=== PATIENT | female | born 1995 | race African-American/Black ===

== ENCOUNTER 2019-12-11 11:47 | Observation (INO) | payer OTHER, SELFPAY ==
[2019-12-11] VITALS (9 sets, daily range): BP systolic 111–120; BP diastolic 66–77; PULSE 85–95; RESP 16; TEMP 36.7; BMI 23.1
--- NOTE | 2019-12-11 11:47 | OBADM ---
This patient, Rukhsana Frances, admitted to the OB room OB Post 115 for observation. Patient/family oriented to hospital policies and general routines including ID bracelet, bed and alarms, visiting hours, pain management, procedures, bathroom and other care routines, personal items, smoking policy, room service/diet, and visiting hours. Patient/Family are encouraged to report perceived risks to care and to ask questions if they do not understand what they are told or what they should do.
--- NOTE | 2019-12-11 14:07 | PM.OBTRLD ---
OB - Triage/Final Diagnosis Visit Information Date of evaluation: 12/11/19 Evaluation Cervical dilation (cm): 4 Cervical effacement (%): 50 station: -3 Final Diagnosis (1) Twin dichorionic diamniotic placenta: Code(s): O30.049 - Twin , dichorionic/diamniotic, unspecified trimester Status: Acute (2) labor in third trimester: Qualifiers: labor delivery status: without delivery Qualified Code(s): O60.03 - labor without delivery, third trimester Code(s): O60.03 - labor without delivery, third trimester Status: Acute Plan: Rukhsana is a 24yo @ 30.3wks with di-di twin complicated by h/o PTD x1, short cervix this on vaginal progesterone, h/o arachnoid cyst w/ normal MRI findings, H/o PP PEC in a prior , h/o GC/CT this s/p txt. Pt presented to clinic with complaints of dexter simons and contractions yesterday. Cervical exam was significant for advanced cervical dilation at 4-5/50/-3. She was sent to [facility] for NST to rule out contractions and for ANCS. She was found to be luz and plan was to start IV fluids, ampicillin for GBS ppx, and magnesium sulfate for neuroprotection, and ANCS. RAVI Nava at [facility] was contacted and has accepted her as a transfer of care. The maternal transport team will come get her.
[2019-12-11] MEDS: LACTATED RINGERS 1,000 ML 75 ML IV CONT (14:27)
[2019-12-11] MEDS: MAGNESIUM SULF 4 GM/WATER100ML 4 GM/100 ML BAG IVPB (14:28)
[2019-12-11] MEDS: BETAMETHASONE SOD PHOS/ACETATE 30 MG/5 ML VIAL 12 MG IM (14:31)
[2019-12-11] MEDS: AMPICILLIN 2 GM/NS 100 ML 2 GM/100 ML BAG IVPB (14:31)
[2019-12-11] MEDS: MAGNESIUM SULF 20GM/WATER500ML 500 ML 50 MG IV CONT (15:01)
== END 2019-12-11 16:15 | disposition short-term general hospital (02) ==
LOC: ANHOBOP 12:02 → ANHOBPP 13:40
PROVIDERS: Admitting Provider Obstetrics & Gynecology; PCP Family Medicine; Visit Provider Obstetrics & Gynecology
DX: O30.043 Twin pregnancy, dichorionic/diamniotic, third trimester (principal); O60.03 Preterm labor without delivery, third trimester; O26.873 Cervical shortening, third trimester; Z3A.30 30 weeks gestation of pregnancy
CPT/HCPCS: 96365; 96366; 96368; 96372; G0378; G0379; J0290; J0702; J3475; J7120

== ENCOUNTER 2020-01-14 21:33 | Inpatient (IN) | payer OTHER, SELFPAY ==
[2020-01-14 22:33] VITALS: BMI 23.4
[2020-01-14] MEDS: BETAMETHASONE SOD PHOS/ACETATE 30 MG/5 ML VIAL 12 MG IM (23:27)
[2020-01-14] MEDS: LACTATED RINGERS 1,000 ML 125 ML IV CONT ×2 (23:28→23:59)
[2020-01-15] VITALS (74 sets, daily range): BP systolic 97–163; BP diastolic 56–102; PULSE 52–101; RESP 14–20; TEMP 36.6–37.2; O2SAT 90–100
[2020-01-15] MEDS: AMPICILLIN 2 GM/NS 100 ML 2 GM/100 ML BAG IVPB
[2020-01-15 00:02] LABS: Basophils Percent Auto 0.2 % (0.2-1.2); Eosinophils Percent Auto 0.3 % (0-4.4); Hematocrit 26.9 % (37.0-47.0); Hemoglobin 8.8 g/dL (12.0-15.0); Immature Granulocyte Absolute 0.02 K/mm3 (0.00-0.031); Immature Granulocyte Percent A 0.3 % (0-0.5); Lymphocytes Absolute Auto 0.64 K/mm3 (0.9-3.2); Lymphocytes Percent Auto 10.5 % (18.3-44.2); Mean Corpuscular HGB Conc 32.7 g/dl (32-36); Mean Corpuscular Volume 79.4 fl (80-100); Mean Platelet Volume 12.1 fl (7.4-10.4); Monocytes Absolute Auto 0.5 K/mm3 (0.1-0.6); Monocytes Percent Auto 7.8 % (2.6-8.5); Neutrophils Percent Auto 80.9 % (45.5-73.1); Platelet Count Result 152 k/mm3 (150-375); Red Blood Count 3.39 M/mm3 (4.2-5.4); Red Cell Distribution Width 14.6 % (11.5-14.5); White Blood Count 6.1 K/mm3 (4.5-10.0)
[2020-01-15 00:03] LABS: Add Urine Microscopic? NO; Appearance Urine Clear (Clear); Bilirubin Urine Negative (Negative); Blood Urine Negative (Negative); Color Urine Straw (Yellow); Glucose Urine UA Negative (Negative); Ketones Urine Negative (Negative); Leukocyte Esterase Ur Negative LEU/UL (Negative); Nitrate Urine Negative (Negative); Protein Urine Negative (Negative); Specific Grav Ur 1.008 (1.001-1.035); Urobilinogen Urine Negative mg/dL (<2.0)
[2020-01-15] MEDS: ONDANSETRON INJ 4 MG/2 ML VIAL IV PUSH (00:05)
--- NOTE | 2020-01-15 00:32 | LDADM ---
This patient, Rukhsana Frances, was admitted to Labor/Delivery/Recovery 101 on 01/14/20 at 21:33. Plans for labor, pain management and were discussed with patient. Patient/family oriented to hospital policies and general routines including ID bracelet, bed and alarms, visiting hours, pain management, procedures, bathroom and other care routines, personal items, smoking policy, room service/diet and guest tray routines, security routines, and visiting hours. Patient/Family are encouraged to report perceived risks to care and to ask questions if they do not understand what they are told or what they should do. See OBIX for further documentation.
--- NOTE | 2020-01-15 03:31 | WPDANESEPPF ---
Anes - Initial Pre Proc Eval Date/Time: 01/15/20 03:31 Surgeon: Eugenia King MD Pre Op Diagnosis: Contractions Patient Data Age: 24 Gender: F Height: 1.7 m Weight: 68 kg Last Vital Signs Temp 36.8 C 01/15/20 01:20 Pulse 79 01/15/20 03:27 BP 118/79 01/15/20 03:27 Pulse Ox 98 01/15/20 03:27 Allergies Allergy/AdvReac Type Severity Reaction Status Date / Time No Known Allergies Allergy Mild Unverified 05/11/09 22:07 Laboratory Tests 01/14/20 01/14/20 01/14/20 23:03 23:55 23:55 WBC 6.1 K/mm3 K/mm3 (4.5-10.0) RBC 3.39 M/mm3 L M/mm3 (4.2-5.4) Hgb 8.8 g/dL L g/dL (12.0-15.0) Hct 26.9 % L % (37.0-47.0) MCV 79.4 fl L fl (80-100) MCH 26.0 pg pg (26-34) MCHC 32.7 g/dl g/dl (32-36) RDW 14.6 % H % (11.5-14.5) Plt Count 152 k/mm3 k/mm3 (150-375) MPV 12.1 fl H fl (7.4-10.4) Immature Gran % (Auto) 0.3 % % (0-0.5) Neut % (Auto) 80.9 % H % (45.5-73.1) Lymph % (Auto) 10.5 % L % (18.3-44.2) [place] % (Auto) 7.8 % % (2.6-8.5) Eos % (Auto) 0.3 % % (0-4.4) Baso % (Auto) 0.2 % % (0.2-1.2) Lymph # (Auto) 0.64 K/mm3 L K/mm3 (0.9-3.2) [place] # (Auto) 0.5 K/mm3 K/mm3 (0.1-0.6) Eos # (Auto) 0.0 K/mm3 K/mm3 (0-0.3) Baso # (Auto) 0.0 K/mm3 K/mm3 (0.0-0.1) Abs Immat Gran (auto) 0.02 K/mm3 K/mm3 (0.00-0.031) Absolute Neuts (auto) 5.0 K/mm3 K/mm3 (1.3-6.7) Absolute Nucleated RBC 0.0 K/mm3 K/mm3 (0.0-0.012) Nucleated RBC % 0.0 % % (0.0-0.2) Urine Color Straw (Yellow) Urine Appearance Clear (Clear) Urine pH 6.0 (5.0-9.0) Ur Specific [place] 1.008 (1.001-1.035) Urine Protein Negative mg/dL mg/dL (Negative) Urine Glucose (UA) Negative mg/dL mg/dL (Negative) Urine Ketones Negative mg/dL mg/dL (Negative) Ur Blood (Man) Negative (Negative) Urine Nitrate Negative (Negative) Urine Bilirubin Negative (Negative) Urine Urobilinogen Negative mg/dL mg/dL (<2.0) Leukocyte Esterase Rfl Negative ARASELI/UL ARASELI/UL (Negative) RPR Pending Patient hx anesthesia problems: none Family hx anesthesia problems: none PMFSH Social History Social History Smoking status: Never smoker Substance use: never Gender identity (if verbalized by the patient): Female Sexual Orientation (if Verbalized by the Patient): Straight or Heterosexual Spiritual care concerns: No Anes - Eval Final PreProcedure Day of Procedure 01/15/20 03:31 Patient weight: normal Heart: regular rate and rhythm Lungs: clear to auscultation and normal air movement Airway: Mallampati scale Neurological: alert and oriented ASA classification: II Emergent: no Anesthetic plan: proceed Anesthesia type and monitoring: regional epidural and standard monitoring Informed Consent: The patient's anesthetic plan and its attendant risks and benefits were discussed with the patient/family/POA. Questions were solicited and answers provided to the satisfaction of the patient/family/POA.
[2020-01-15] MEDS: AMPICILLIN 1 GM/NS 50 ML 1 GM/50 ML BAG IVPB (03:50)
[2020-01-15] MEDS: LACTATED RINGERS 1,000 ML 125 ML IV CONT ×3 (03:50→14:29)
--- NOTE | 2020-01-15 06:37 | PM.IMHP ---
H&P: HPI History of Present Illness Chief complaint: Contractions Narrative: Rukhsana Frances is a 24 yo @ 35.3wks who presented in labor with painful contractions and made cervical change to 8cm overnight. 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 She has also signed BTL papers as she no longer desires future fertility. Review of Systems Constitutional: Constitutional: Denies chills Eyes: Eyes: Denies blurry vision Cardiovascular: Cardiovascular: Denies chest pain and Denies palpitations Respiratory: Respiratory: Denies cough and Denies dyspnea Gastrointestinal: Gastrointestinal: Denies nausea and Denies vomiting Genitourinary: Genitourinary: Denies vaginal discharge Musculoskeletal: Musculoskeletal: Reports back pain Neurologic: Denies headache(s) Psychiatric: Psychiatric: Denies anxiety and Reports depression [facility] Social History Social History Smoking status: Never smoker Substance use: never Gender identity (if verbalized by the patient): Female Sexual Orientation (if Verbalized by the Patient): Straight or Heterosexual Spiritual care concerns: No Meds Home Medications and Allergies Allergies Allergy/AdvReac Type Severity Reaction Status Date / Time No Known Allergies Allergy Mild Unverified 05/11/09 22:07 Vital Signs Vital Signs - 24 hr 01/15/20 01:20 01/15/20 03:02 01/15/20 03:04 Temperature 36.8 C Pulse Rate 89 Blood Pressure 140/91 H Pulse Oximetry 100 01/15/20 03:06 01/15/20 03:07 01/15/20 03:09 Temperature Pulse Rate 88 101 H Blood Pressure 139/86 132/88 Pulse Oximetry 100 01/15/20 03:12 01/15/20 03:15 01/15/20 03:17 Temperature Pulse Rate 83 81 Blood Pressure 131/81 130/81 Pulse Oximetry 100 100 01/15/20 03:18 01/15/20 03:22 01/15/20 03:24 Temperature Pulse Rate 87 79 Blood Pressure 117/80 125/86 Pulse Oximetry 99 01/15/20 03:27 01/15/20 03:32 01/15/20 03:33 Temperature Pulse Rate 79 83 Blood Pressure 118/79 105/73 Pulse Oximetry 98 98 01/15/20 03:36 01/15/20 03:37 01/15/20 03:39 Temperature Pulse Rate 76 76 Blood Pressure 120/76 116/72 Pulse Oximetry 99 01/15/20 03:42 01/15/20 03:45 01/15/20 03:47 Temperature Pulse Rate 88 79 Blood Pressure 97/66 L 112/67 Pulse Oximetry 97 97 01/15/20 03:48 01/15/20 03:52 01/15/20 03:57 Temperature Pulse Rate 74 Blood Pressure 113/68 Pulse Oximetry 97 96 01/15/20 04:00 01/15/20 04:02 01/15/20 04:07 Temperature Pulse Rate 72 Blood Pressure 112/72 Pulse Oximetry 97 97 01/15/20 04:12 01/15/20 04:15 01/15/20 04:17 Temperature Pulse Rate 78 Blood Pressure 107/58 L Pulse Oximetry 97 94 01/15/20 04:22 01/15/20 04:27 01/15/20 04:30 Temperature Pulse Rate 74 Blood Pressure 104/66 Pulse Oximetry 94 94 01/15/20 04:32 01/15/20 04:37 01/15/20 04:42 Temperature Pulse Rate Blood Pressure Pulse Oximetry 93 92 92 01/15/20 04:45 01/15/20 04:47 01/15/20 04:52 Temperature Pulse Rate 77 Blood Pressure 103/56 L Pulse Oximetry 90 90 01/15/20 04:57 01/15/20 05:15 01/15/20 05:30 Temperature 36.6 C Pulse Rate 66 Blood Pressure 114/66 Pulse Oximetry 91 01/15/20 05:45 01/15/20 06:00 01/15/20 06:30 Temperature Pulse Rate 65 59 L 59 L Blood Pressure 118/68 119/65 132/76 Pulse Oximetry Exam Const: General: comfortable and no acute distress Other: s/p epidural Resp: Effort & Inspection: normal respiratory effort Cardio: Rate: regular rate GI: Other: gravid : Other: FHTs A:110's/ mod maye
--- NOTE | 2020-01-15 08:03 | PM.OBPRVD ---
OB - Delivery Note Procedure Delivery date: 01/15/20 Procedure: Patient progressed to complete dilation and was taken to the operating room for double setup. with good maternal effort twin A'is head was delivered over intact perineum. the shoulders and body delivered without complications. the had spontaneous cry and the umbilical cord was then clamped and cut. the infant was immediately placed skin to skin. twin B's heart tones were obtained and found to be reassuring. ultrasound confirmed that when he was now in the breech malpresentation. however twin B was also known to be the smaller twin and patient was counseled on all risks and benefits and desired to attempt breech vaginal delivery. with good maternal effort the patient pushed the buttocks to the cervix. with continued maternal effort the amniotic sac spontaneously ruptured and the presenting breech part was noted at the perineum. the legs were easily delivered and with an additional push the fetus was delivered without complications. the infant had spontaneous cry and the mouth and nose were bulb suctioned. the cord was clamped and cut and the was immediately placed skin to skin. with Pitocin running and gentle traction on the umbilical cords, the two placentas was delivered without complications. bimanual exam was performed and good uterine tone was noted. the cervix, vagina, and perineum were examined and no lacerations were noted. misoprostol 800 micrograms was placed rectally to prevent uterine atony. sponge, lap, and instrument counts were correct at the end of the procedure. patient tolerated the procedure well and was cleaned up and taken to the postop recovery area in a stable condition. events: Labor < 37 Weeks Delivery augmentation: rupture of membranes and pitocin Delivery monitor: external FHT, external uterine and internal FHT Route of delivery: (; then breech) Laceration description: None Specimen: Yes Estimated blood loss (mL): 250 Anesthesia type: Epidural Disposition: floor [place] Baby Date of : 01/15/20 Time of : 07:36 Weeks of gestation at delivery: 35 Infant gender: Male Weight (pounds): 4 Weight (ounces): 11 presentation: vertex Placenta delivery description: Expressed cord vessel description: 3 Vessels score one minute: 9 score five minutes: 9 Twins 2: Date of : 01/15/20 Time of : 07:46 Weeks of gestation at delivery: 35 gender: Male Weight (pounds): 4 Weight (ounces): 4 presentation: nigel breech Placental delivery description: Expressed cord vessel description: 3 Vessels score one minute: 9 score five minutes: 9
[2020-01-15] MEDS: OXYTOCIN 30 UNITS/NS 500 ML 30 UNITS/500 ML BAG 999 UNITS IV CONT (09:22)
[2020-01-15] MEDS: MISOPROSTOL 200 MCG TABLET 800 MCG RECTAL (09:22)
[2020-01-15] MEDS: OXYTOCIN 30 UNITS/NS 500 ML 30 UNITS/500 ML BAG 125 UNITS IV CONT (09:23)
[2020-01-15] MEDS: BENZOCAINE 20% AER SPR (*SP) 56 GM CAN 1 SPRAY TOPICAL (09:24)
[2020-01-15] MEDS: WITCH HAZEL 40 PADS 1 PAD TOPICAL (09:24)
[2020-01-15] MEDS: DIBUCAINE 1% OINTMENT 30 GM TUBE 1 APPLIC TOPICAL (09:25)
[2020-01-15] MEDS: ACETAMINOPHEN 325 MG TABLET 650 MG PO (09:56)
[2020-01-15] MEDS: IBUPROFEN 600 MG TABLET PO (09:57)
[2020-01-15] MEDS: LABETALOL HCL INJ 100 MG/20 ML VIAL 20 MG IV PUSH (10:03)
[2020-01-15 10:26] LABS: Basophils Percent Auto 0.1 % (0.2-1.2); Hematocrit 32.5 % (37.0-47.0); Hemoglobin 10.7 g/dL (12.0-15.0); Immature Granulocyte Absolute 0.04 K/mm3 (0.00-0.031); Immature Granulocyte Percent A 0.4 % (0-0.5); Lymphocytes Absolute Auto 0.32 K/mm3 (0.9-3.2); Lymphocytes Percent Auto 3.3 % (18.3-44.2); Mean Corpuscular HGB Conc 32.9 g/dl (32-36); Mean Corpuscular Hemoglobin 26.4 pg (26-34); Mean Corpuscular Volume 80.2 fl (80-100); Mean Platelet Volume 12.5 fl (7.4-10.4); Monocytes Absolute Auto 0.2 K/mm3 (0.1-0.6); Monocytes Percent Auto 2.4 % (2.6-8.5); Neutrophils Absolute Auto 9.1 K/mm3 (1.3-6.7); Neutrophils Percent Auto 93.8 % (45.5-73.1); Platelet Count Result 170 k/mm3 (150-375); Red Blood Count 4.05 M/mm3 (4.2-5.4); Red Cell Distribution Width 14.8 % (11.5-14.5); White Blood Count 9.7 K/mm3 (4.5-10.0)
[2020-01-15 10:41] LABS: Alanine Aminotransferase 9 U/L (4-35); Albumin Level 3.7 g/dL (3.5-5.1); Alkaline Phosphatase 172 U/L (38-126); Aspartate Amino Transferase 22 U/L (14-36); Bilirubin,Total 0.5 mg/dL (0.2-1.3); Blood Urea Nitrogen 6 mg/dL (7-17); Calcium 8.9 mg/dL (8.4-10.2); Carbon Dioxide 25 mmol/L (22-30); Chloride 105 mmol/L (98-107); Estimated CRCL calculation 106 ml/min; Estimated Glomerular Filt Rate > 60; Glucose 92 mg/dL (65-105); Potassium 4.3 mmol/L (3.4-5.0); Sodium 135 mmol/L (137-145); Uric Acid 5.9 mg/dL (2.5-7.5)
--- NOTE | 2020-01-15 12:00 | OBPPTRN ---
Patient transferred to post room # 277 via wheelchair. Support person present. Oriented to unit, room, information board, rooming in, admission packet and security measures. Patient verbalizes understanding.
[2020-01-15 13:21] LABS: Rapid Plasma Reagin Non-Reactive (NonReactive)
[2020-01-15] MEDS: MAGNESIUM SULF 4 GM/WATER100ML 4 GM/100 ML BAG IVPB (14:30)
--- NOTE | 2020-01-15 14:30 | PC.NURSE ---
Consult with pt., mother states she wishes to breast and bottle feed. Mother has bottle fed infants last two feedings. She attempted each infant to breast a few minutes then bottle fed, due to infant sleepiness. Mother is also on Mag and not feeling well. Mother reports she breastfed two other children without difficulties or discomfort. Reviewed breatfeeding twins, with possible sleepiness, low tone and inconsistent feeding patterns. Suggested mother initiate pumping when she is ready. Reviewed rotating infants to other breast each feeding and to only feed one at a time to assist with deep latch and maintaining latch. Mother will call out when ready to initiate pumping.
[2020-01-15] MEDS: MAGNESIUM SULF 20GM/WATER500ML 500 ML 50 MG IV CONT ×2 (14:31→22:54)
--- NOTE | 2020-01-15 17:50 | PC.NURSE ---
0810 UPON ARRIVAL BACK TO LABOR ROOM 1...NOTED THAT THROUGH THE NIGHT THE LARGE BP CUFF WAS ON AND PT IS VERY THIN. TOOK WITH PEDS BP CUFF 156/98 THEN WITH REGULAR BLUE CUFF 162/95. PT STATED THAT SHE HAD HIGH BP'S WITH HER DAUGHTER AND HAD TO BE ON MAGNESIUM AFTER DELIVERY. SERIAL BP'S AND BLOOD DRAWN AND CALLED DR ALEXANDER WITH INFORMATION. PT ALSO C/O A FRONTAL HEADACHE THAT RATED A 5...MEDS GIVEN. LABETALOL 20MG IVP GIVEN X1 AND BP'S ONLY SLIGHTLY BETTER. GOT PT UP TO BATHROOM WITH GOOD VOID AND PADS CHANGED AND WILL TRANSPORT TO POST AFTER REPORT TO Kamron VALENCIA RN. [address] ALEXANDER LABS AND PLAN OF CARE WILL BE MAGNESIUM AND PROCARDIA XL, BUT COMING IN AT LUNCH TO EVALUATE. TAKEN TO ROOM 277 AND HELPED SHANTE SET UP MAG/PIT/MAIN.
[2020-01-15 21:12] LABS: Magnesium 5.2 mg/dL (1.6-2.3)
[2020-01-16] MEDS: LACTATED RINGERS 1,000 ML 75 ML (03:00)
[2020-01-16 03:43] LABS: Hematocrit 33.2 % (37.0-47.0); Hemoglobin 11.1 g/dL (12.0-15.0)
[2020-01-16 03:55] LABS: Alanine Aminotransferase 13 U/L (4-35); Albumin Level 3.7 g/dL (3.5-5.1); Alkaline Phosphatase 183 U/L (38-126); Aspartate Amino Transferase 25 U/L (14-36); Bilirubin,Total 0.1 mg/dL (0.2-1.3); Blood Urea Nitrogen 5 mg/dL (7-17); Calcium 7.3 mg/dL (8.4-10.2); Carbon Dioxide 26 mmol/L (22-30); Chloride 101 mmol/L (98-107); Estimated CRCL calculation 106 ml/min; Estimated Glomerular Filt Rate > 60; Glucose 118 mg/dL (65-105); Potassium 3.7 mmol/L (3.4-5.0); Sodium 133 mmol/L (137-145); Uric Acid 5.8 mg/dL (2.5-7.5)
[2020-01-16 03:56] LABS: Magnesium 6.6 mg/dL (1.6-2.3)
[2020-01-16 05:15] VITALS: BP 121/84; PULSE 62
[2020-01-16] MEDS: IBUPROFEN 600 MG TABLET PO (05:25)
[2020-01-16 07:55] VITALS: BP 118/78; PULSE 56; RESP 16; TEMP 37.1; O2SAT 95
--- NOTE | 2020-01-16 12:28 | PM.OBPNVD ---
OB - PN: Subj Subjective Date/time seen: 01/16/20 12:28 Rukhsana is a 24yo now P1204 s/p of di-di twins 2/2 PTL @ 35.3wks, PPD #1 Today, Rukhsana reports feeling better now that the magnesium has been discontinued. No CP, BOSE, SOB, RUQ pain or vision changes. She is tolerating regular diet w/o N/V. She is ambulating w/o s/sx of anemia. She reports her pain is controlled. Her bleeding is light. She is breast and bottle feeding the twins. She desires her sons to get circumcised. She would like to go home tomorrow if possible. OB - PN: Obj Data Labs CBC & Chem 7: 01/16/20 03:34 01/16/20 03:34 Labs: Laboratory Results - last 24 hr 01/14/20 01/15/20 01/16/20 23:55 20:50 03:34 Hgb Hct Sodium Potassium Chloride Carbon Dioxide BUN Creatinine Estim Creat Clear Calc Estimated GFR Glucose Uric Acid Calcium Magnesium 5.2 H 6.6 H Total Bilirubin AST ALT Alkaline Phosphatase Total Protein Albumin RPR Non-reactive 01/16/20 01/16/20 03:34 03:34 Hgb 11.1 L Hct 33.2 L Sodium 133 L Potassium 3.7 Chloride 101 Carbon Dioxide 26 BUN 5 L Creatinine 0.70 Estim Creat Clear Calc 106 Estimated GFR > 60 Glucose 118 H Uric Acid 5.8 Calcium 7.3 L Magnesium Total Bilirubin 0.1 L AST 25 ALT 13 Alkaline Phosphatase 183 H Total Protein 7.0 Albumin 3.7 RPR OB - PN A/P Assessment and Plan (1) labor, delivered, current hospitalization: Code(s): O60.10X0 - labor with delivery, unspecified trimester, not applicable or unspecified Status: Acute (2) Pre-eclampsia: Code(s): O14.90 - Unspecified pre-eclampsia, unspecified trimester Status: Acute Plan day: 1 Comments: - Meeting all milestones - Pain meds PRN - Labs stable - Continue breast and bottle feeding - BP's in normal range, pt asymptomatic; s/p labetalol IV, MgSO4 x24 hrs, and nifedipine 30mg PO qd (will continue PO meds) - Plan for discharge home tomorrow pending normal to mild blood pressures - Discharge instructions discussed: pelvic rest, monitor BP's and symptoms of HTN, fever, bleeding, N/v/pain - Pt to follow up in 1 week in clinic for BP check Time Spent With Patient Time: Total time spent is greater than 50% in coordination of care (as documented) at patient's floor/unit and/or counseling patient: Review of Systems Constitutional: Constitutional: Denies body ache(s) and Denies chills Cardiovascular: Cardiovascular: Denies rapid heart rate and Denies edema Respiratory: Respiratory: Denies cough and Denies dyspnea Gastrointestinal: Gastrointestinal: Denies abdominal pain, Denies nausea and Denies vomiting Genitourinary: Genitourinary: Reports pelvic pain Neurologic: Denies headache(s) Exam Const: General: comfortable, no acute distress, alert and awake Orientation/consciousness: patient oriented x3 Resp: Effort & Inspection: normal respiratory effort Auscultation: clear to auscultation bilaterally Cardio: Rate: regular rate GI: Auscultation: normal bowel sounds Other: non-distended, soft, appropriately tender : Other: fundus firm below umbilicus Psych: Appearance: grossly normal Affect: normal affect Attitude: cooperative
[2020-01-16 12:50] VITALS: BP 115/78; PULSE 58; RESP 18; TEMP 36.6; O2SAT 98
--- NOTE | 2020-01-16 13:03 | PC.NURSE ---
Breast feeding note; nurse visited with mother; babies with for circumcision at this time. Mother reports babies are breast feeding and she is bottle feeding at each feeding. She reports babies nurse about 15 minutes. Nurse reviewed how to assess that babies are latching deep, importance of deep maintained latch and the most vigorous nursing babies will do, suggesting about 15 minutes each feeding. Feedings to be q3h, then important to continue supplementation at each feeding. Mother denies nipple pain; nurse did suggest that at the next feeding, pt have a nurse come to see babies at breast. Also, mother encouraged to start pumping if babies do not breast feed, or if mother feels babies did not nurse vigorously. Nurse set up breast pump and mother did pump; 24mm flange comfortable for mother. Mother reports she does have a Medela pump at home; attachments shown to pt and explained care of equipment. Mother quiet, seemed attentive and voiced understanding of information shared.
[2020-01-16] MEDS: SERTRALINE HCL 50 MG TABLET PO (15:36)
[2020-01-16] MEDS: MULTIVIT/MIN/PREN/FOL AC/IRON TABLET 1 TAB PO (15:36)
[2020-01-16] MEDS: NIFEdipine 30 MG TAB.ER.24 PO (18:13)
[2020-01-16 21:35] VITALS: BP 129/71; PULSE 61; RESP 16; TEMP 37.1; O2SAT 99
[2020-01-16 22:30] VITALS: BP 111/76; PULSE 60
[2020-01-17 04:15] VITALS: BP 107/75; PULSE 54
[2020-01-17 08:00] VITALS: BP 119/79; PULSE 57; RESP 20; TEMP 36.7
[2020-01-17] MEDS: MULTIVIT/MIN/PREN/FOL AC/IRON TABLET 1 TAB PO (08:23)
[2020-01-17] MEDS: SERTRALINE HCL 50 MG TABLET PO (08:23)
[2020-01-17] MEDS: LANOLIN (LANSINOH) 7.5 GM CREAM 1 APPLIC TOPICAL (08:24)
--- NOTE | 2020-01-17 08:45 | PC.NURSE ---
Mother is able to independently latch infant with appropriate positioning/alignment. She denies any nipple discomfort, is feeding as required and waking to feed if needed. Mother will continue to put each to breast for 10 minutes, she will then supplement and pump. Mother is very comfortable with attempt breast, bottle feed and pump. Last child was 36 weeks and did not independently breastfeed 4 weeks. Mother has a Medela pump for home use. Mother is pumping here without difficulties or discomfort. Discussed signs when infants are ready to begin weaning from supplementation, reviewing both infants may vary when ready to wean. Infants are currently meeting outcomes for weight, output, jaundice and feeding frequencies. Mother states she feels confident to continue current feeding plan at home. Reviewed transition to breast milk, signs of adequate intake, and engorgement/relief. Instructed to call ICP if intake/output less than required. Reviewed regular medications mother is taking. Information provided per Cassie. Reviewed community resources on the [facility] website and in the Mom/Baby guide. Information on outpatient services provided. Mother has no further questions at this time.
--- NOTE | 2020-01-17 11:21 | PC.NURSE ---
Patient was given the opportunity to view the discharge video Mother & Baby Care, The First Two Weeks and to ask questions. Patient declined viewing the video and has been given the mother/baby guide for home reference.
--- NOTE | 2020-01-17 11:22 | PC.NURSE ---
Self care and infant care discharge instructions given including follow up visit date and time. Mother verbalized understanding. Feedling plan given and reviewed with patient. Pt. understanding verbalized. Very pleasant and cooperative. No questions or concerns verbalized.
[2020-01-18 09:48] VITALS: BP 125/85; PULSE 75; RESP 16; TEMP 37.2; O2SAT 99
--- NOTE | 2020-01-21 10:01 | PM.OBDSVD ---
DS: Admitting Diagnosis Admitting Diagnosis Admitting Diagnosis: Encounter for supervision of normal , unspecified, third trimester DS: Discharge Diagnosis Discharge Diagnosis (1) labor, delivered, current hospitalization: Code(s): O60.10X0 - labor with delivery, unspecified trimester, not applicable or unspecified Status: Acute (2) Pre-eclampsia: Qualifiers: Trimester: third trimester Qualified Code(s): O14.93 - Unspecified pre-eclampsia, third trimester Code(s): O14.90 - Unspecified pre-eclampsia, unspecified trimester Status: Acute (3) Twin dichorionic diamniotic placenta: Code(s): O30.049 - Twin , dichorionic/diamniotic, unspecified trimester Status: Acute OB - DS: Summary OB Procedures : NST, Ultrasound and PTL Mgmt OB Procedures Intrapartum: Spontaneous Vag Delivery and Breech extraction (twin b) OB Procedures: : None Peripartum Data Infant Delivery Method: Natural Vaginal Laceration description: None complications: other (PEC w/ SF; requiring IV antihypertensives and MgSO4) 1: Gender: Male Disposition of : home 2: Gender: Male Disposition of : home Status at Discharge Functional status at discharge: independent ambulation Overall status at discharge: patient is back to baseline Time Spent with Patient Time attestation: Total time spent providing and/or coordinating discharge services: Exam Const: General: comfortable, no acute distress, alert and awake Orientation/consciousness: patient oriented x3 Resp: Effort & Inspection: normal respiratory effort Cardio: Rate: regular rate GI: Inspection: non-distended GI Palp: Yes Soft to palpation and No Tenderness to palpation present (GI) Auscultation: normal bowel sounds : Other: fundus firm below umbilicus; normal lochia Psych: Appearance: grossly normal Attitude: cooperative Thought content: Yes Normal thought content present Judgement: Good judgement present (Psych) DS: Data Data Completed and Pending Completed studies during hospitalization: Pending at discharge 01/15/20 07:48 Surgical [PTH] Routine Discharge Plan Discharge Attending physician on discharge: Eugenia King Discharging Clinician: Eugenia King Anticipated Discharge Date/Time: 01/17/20 10:00 Patient Disposition: Home, Self-Care Activity: pelvic rest Diet: regular Discharge Instructions: Education: Mom and Baby Guide Given to: Mother Follow-Up: Call your delivering provider's office for an appointment to be seen in: 6 Weeks Mom and baby should come to the [facility] for the follow-up appointment. Appointment Date/Time: January 18, 2020 at 9:00 am What to expect at your follow-up visit: Blood Pressure Check Physical Assessment Call [phone] if you are unable to keep your appointment time. BREAST CARE: 1. Wear a snug supportive bra. 2. For engorgement discomfort: Breast Feeding: A. Apply warm moist washcloths B. Express milk as needed to relieve engorgement C. Wear loose clothing Bottle Feeding: A. May apply ice packs 3. For sore nipples: A. Identify correct latch-on B. Apply warm moist washcloths before and after nursing C. Air dry nipples after nursing D. May apply Lansinoh cream to nipples EPISIOTOMY/PERINEAL CARE: 1. Until bleeding stops, use your brent bottle after urinating 2. Change your pad frequently throughout the day 3. You may take sitz baths several times a day (fill your bathtub with warm water and soak for 20 minutes.) Do NOT bathe in the water 4. No tub baths until seen by your physician - You may shower ACTIVITY: 1. Rest as much as possible. 2. Do not exercise or lift anything heavier than your baby (such as laundry or other children.) 3.
== END 2020-01-17 15:20 | disposition home or self-care (01) | DRG 560 ==
LOC: ANHOBPP 21:59 → ANHLDR 23:39 → ANHOB2 01-15 12:04
PROVIDERS: Admitting Provider Obstetrics & Gynecology; PCP Family Medicine; Visit Provider Obstetrics & Gynecology
DX: O60.14X1 Preterm labor third trimester with preterm delivery third trimester, fetus 1 (principal); Z37.2 Twins, both liveborn; Z3A.35 35 weeks gestation of pregnancy; O60.14X2 Preterm labor third trimester with preterm delivery third trimester, fetus 2; O30.043 Twin pregnancy, dichorionic/diamniotic, third trimester; O32.8XX2 Maternal care for other malpresentation of fetus, fetus 2; O36.5931 Maternal care for other known or suspected poor fetal growth, third trimester, fetus 1; O36.5932 Maternal care for other known or suspected poor fetal growth, third trimester, fetus 2; O69.82X2 Labor and delivery complicated by other cord entanglement, without compression, fetus 2; O36.8331 Maternal care for abnormalities of the fetal heart rate or rhythm, third trimester, fetus 1; O77.0 Labor and delivery complicated by meconium in amniotic fluid; O26.873 Cervical shortening, third trimester; O14.94 Unspecified pre-eclampsia, complicating childbirth
CPT/HCPCS: 36415; 80053; 81003; 83735; 84550; 85014; 85018; 85025; 86592; 86850; 86900; 86901; 88307; A9270; J0290; J0702; J2405; J2590; J2795; J3475; J7120

== ENCOUNTER 2020-03-15 01:01 | Outpatient (CLI) | payer OTHER, SELFPAY ==
[2020-03-15 23:30] LABS: SARS-CoV-2 RNA PCR Negative
== END 2020-03-15 01:02 | disposition home or self-care (01) ==
LOC: ANHCOVIDDT 01:01
PROVIDERS: PCP Family Medicine; Visit Provider Obstetrics & Gynecology
DX: Z01.812 Encounter for preprocedural laboratory examination (principal); Z11.59 Encounter for screening for other viral diseases
CPT/HCPCS: 87635; C9803; U0003

== ENCOUNTER 2020-03-15 11:43 | Outpatient (CLI) | payer OTHER, SELFPAY ==
--- NOTE | 2020-03-15 11:51 | ECG_ITS ---
Measurements Intervals [place] Rate: 64 P: 49 HI: 156 QRS: 14 QRSD: 72 T: 11 QT: 397 QTc: 410 Interpretive Statements SINUS RHYTHM WITH SINUS ARRHYTHMIA BORDERLINE R WAVE PROGRESSION, ANTERIOR LEADS BORDERLINE T WAVE ABNORMALITY- ANTERIOR LEADS BASELINE ARTIFACT- II, III BORDERLINE ECG Electronically Signed On 03-15-2020 19:32:52 CDT by Chicho Kang D.O.
[2020-03-15 12:27] LABS: Hematocrit 40.2 % (37.0-47.0); Hemoglobin 13.4 g/dL (12.0-15.0)
== END 2020-03-15 11:44 | disposition home or self-care (01) ==
PROVIDERS: PCP Family Medicine; Visit Provider Anesthesiology
DX: Z01.818 Encounter for other preprocedural examination (principal); D64.9 Anemia, unspecified; I10 Essential (primary) hypertension
CPT/HCPCS: 36415; 85014; 85018; 87635; 93005; C9803; U0003

== ENCOUNTER 2020-03-18 01:57 | Day surgery (SDC) | payer OTHER, SELFPAY ==
[2020-03-14 10:49] VITALS: BMI 19.2
--- NOTE | 2020-03-17 10:09 | WPDANESEPP ---
Anes - Eval Pre Procedure Procedure: Operation Date: 03/18/20 07:30 Proposed Procedures p Laparoscopic Bilateral Tubal Ligation With Cautery - Eugenia King MD Date/Time: 03/17/20 10:09 Pre Op Diagnosis: Desires Sterilization Patient Data Age: 24 Gender: F Height: 1.7 m Weight: 55.79 kg Allergies Allergy/AdvReac Type Severity Reaction Status Date / Time No Known Allergies Allergy Mild Unverified 03/14/20 10:50 Home Medications Medication Instructions Recorded Confirmed Type ibuprofen 600 mg PO Q6H PRN 10 Days #40 01/16/20 03/14/20 Rx tablet nifedipine [Procardia XL] 30 mg PO QAM 45 Days #45 tablet 01/16/20 03/14/20 Rx polysaccharide iron complex 150 mg PO BIDWM 30 Days #60 cap 01/16/20 03/14/20 Rx prenat.vits,alessandra,[id number]-[id number] 1 tab PO DAILY 30 Days #30 tablet 01/16/20 03/14/20 Rx [KPN] sertraline [Zoloft] 50 mg PO QAM 30 Days #30 tablet 01/16/20 03/14/20 Rx Patient hx anesthesia problems: none Family hx anesthesia problems: none PMFSH Past Medical History Medical History (Updated 03/17/20 @ 10:10 by Adali Pryor CRNA) Anemia Anxiety Social History Social History Smoking status: Never smoker Substance use: never Gender identity (if verbalized by the patient): Female Spiritual care concerns: No Exam Day of Procedure 03/17/20 10:09
[2020-03-18] VITALS (10 sets, daily range): BP systolic 109–163; BP diastolic 65–108; PULSE 48–64; RESP 7–20; TEMP 36.2–36.4; O2SAT 97–100
[2020-03-18] MEDS: KETOROLAC 15 MG/ML VIAL (*BKC) IV PUSH (06:44)
[2020-03-18] MEDS: LACTATED RINGERS 1,000 ML 30 ML IV CONT ×2 (06:44→08:24)
[2020-03-18] MEDS: ACETAMINOPHEN 500 MG TABLET 1000 MG PO (06:44)
--- NOTE | 2020-03-18 06:58 | PM.IMHP ---
H&P: HPI History of Present Illness Date/Time: 03/18/20 06:58 Chief complaint: Desires Sterilization Narrative: Rukhsana Frances is a 24 yo [id number] who presents today for scheduled BTL. She had a twin delivered in January 2020 and has desired BTL prior to [place]. [place] prior to [place]. She has had complicated deliveries with labor and pre-eclampsia. She is currently still Review of Systems Constitutional: Constitutional: Denies body ache(s), Denies chills and Denies weakness Eyes: Eyes: Denies blurry vision Cardiovascular: Cardiovascular: Denies chest pain and Denies palpitations Respiratory: Respiratory: Denies cough and Denies dyspnea Gastrointestinal: Gastrointestinal: Denies abdominal pain, Denies nausea and Denies vomiting Genitourinary: Genitourinary: Denies pelvic pain and Denies vaginal discharge Integumentary/Breasts: Skin/Breast: Denies rash Neurologic: Denies headache(s) Psychiatric: Psychiatric: Denies anxiety ON LICENSE OF [facility] Past Medical History Medical History Anemia Anxiety Social History Social History Smoking status: Never smoker Substance use: never Gender identity (if verbalized by the patient): Female Spiritual care concerns: No Meds Home Medications and Allergies Home Medications Medication Instructions Recorded Confirmed Type ibuprofen 600 mg PO Q6H PRN 10 Days #40 01/16/20 03/14/20 Rx tablet nifedipine [Procardia XL] 30 mg PO QAM 45 Days #45 tablet 01/16/20 03/14/20 Rx polysaccharide iron complex 150 mg PO BIDWM 30 Days #60 cap 01/16/20 03/14/20 Rx prenat.vits,alessandra,[id number]-[id number] 1 tab PO DAILY 30 Days #30 tablet 01/16/20 03/14/20 Rx [KPN] sertraline [Zoloft] 50 mg PO QAM 30 Days #30 tablet 01/16/20 03/14/20 Rx Allergies Allergy/AdvReac Type Severity Reaction Status Date / Time No Known Allergies Allergy Mild Unverified 03/18/20 06:58 Exam Const: General: comfortable and no acute distress Resp: Effort & Inspection: normal respiratory effort Cardio: Rate: regular rate GI: Inspection: non-distended GI Palp: Yes Soft to palpation and No Tenderness to palpation present (GI) : Speculum Exam - Vagina: normal vaginal discharge Skin: General skin exam: normal color Neuro: Speech: normal speech Extrem: General: normal to inspection Psych: Mental Status: mental status grossly normal Affect: normal affect Assessment and Plan Assessment and plan (1) Request for sterilization: Code(s): Z30.2 - Encounter for sterilization Status: Acute Assessment and Plan: - Plan for Laparoscopic bilateral tubal ligation - Risks and benefits were explained in detail including but not limited to pain, bleeding, infection, injury to nearby structures, risk of regret of decision before age 30, and 1/300 chance risk of ectopic . - Pt agrees to risks and the appropriate consents signed - No ppx abx indicated
--- NOTE | 2020-03-18 07:00 | P.PNAN_ITS ---
Anes - Eval Final PreProcedure Day of Procedure 03/18/20 07:00 Patient weight: normal Heart: regular rate and rhythm Lungs: clear to auscultation Airway: Mallampati scale class II Neurological: alert and oriented Last oral intake: >/= 8 hours ASA classification: II Emergent: no Anesthetic plan: proceed Anesthesia type and monitoring: general ETT and standard monitoring Informed Consent: The patient's anesthetic plan and its attendant risks and be nefits were discussed with the patient/family/POA. Questions were solicited and answers provided to the satisfaction of the patient/family/POA.
--- NOTE | 2020-03-18 08:10 | P.OP_ITS ---
Procedure Note - Detailed Date of procedure: 03/18/20 Pre-op diagnosis: Desires Sterilization Post-op diagnosis: same Procedure performed: Laproscopic bilateral tubal ligation Description of procedure: The [facility] sterilization form was signed prior to delivery. Patient was seen in her 6 week visit and still desired sterilization. She was counseled on all risks and benefits and agreed. The appropriate consents were signed. The patient was taken the operating room where she was placed under general endotracheal anesthesia without complications she was then prepped and draped in the dorsal lithotomy position with her legs in stirrups. No antibiotics were indicated and a time-out was performed. the bladder was drained using a straight catheter. A bivalve speculum was then placed within the vagina and the cervix was identified. The anterior lip of the cervix was then grasped with a single-tooth tenaculum. The uterus was sounded to 8 cm. A [employer] diagnostic uterine manipulator was then placed within the uterus and the balloon was filled with 5 cc of normal saline. Our gloves were changed and our attention was turned to the abdomen. A small infraumbilical incision was made and a 5 mm trocar was placed under direct visualization without complications. Once intra-abdominal confirmation was confirmed the abdomen was insufflated without issues. Two additional trocars were placed under direct visualization in the right and left lower quadrants. The patient was then placed in slight Trendelenburg. The uterus was anteverted using the uterine manipulator and the above findings were noted. The left fallopian tube was grasped using the LigaSure device the tube was coagulated and transected. The mesosalpinx was serially clamped, coagulated, and transected. The fallopian tube was clamped, coagulated, and transected at the most distal end, and a segment of approximately 2-3 cm of the tube was removed. The same procedure was then performed on the right side without complications. Good hemostasis was noted bilaterally. The tubes were removed through the port site without complications. The insufflation was released and the trocars were removed without complications. The trocar sites were reapproximated using a interrupted 3 0 Monocryl stitch and covered with Dermabond. The trocar sites were then infiltrated with approximately 10 cc of xylocaine. The patient was woken from general anesthesia without complications and taken to recovery room with plans of same day discharge. Anesthesia: GETA Surgeon: Eugenia King MD Slide Attendant: Jeanine Reyes Estimated blood loss (mL): 0 Urine output (mL): 50 Drains: No Packing: No Pathology: yes Complications: No immediate complications Condition: stable Disposition: PACU Findings: Normal uterus that sounded to 8cm. Normal ovaries bilaterally. Adhesions noted along the left fallopian tube. Normal right tube. Good hemostasis at the end of the case.
--- NOTE | 2020-03-18 10:54 | SUR.PHASEII ---
1050 PT DRESSED. JUST WAITING ON RIDE HOME. PT MEETS ANESTHESIA CRITERIA FOR DISCHARGE HOME. DENIES PAIN.
== END 2020-03-18 11:35 | disposition home or self-care (01) ==
PROVIDERS: PCP Family Medicine; Visit Provider Obstetrics & Gynecology
PROC: (CPT 58671; principal; 2020-03-18 07:30)
DX: Z30.2 Encounter for sterilization (principal); D64.9 Anemia, unspecified; F41.8 Other specified anxiety disorders
CPT/HCPCS: 58661; 88302; A9270; J0330; J1100; J1885; J2250; J2405; J2704; J3010; J7120